=== PATIENT | female | born 2005 | race Caucasian/White ===

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

== ENCOUNTER 2025-02-11 15:06 | Emergency (ER) | payer OTHER, SELFPAY ==
--- NOTE | ~2025-02-11 | XR_ITS ---
CLINICAL HISTORY: coughing. pneumonia 1 view chest x-ray Comparison: None provided Findings: The lungs are clear. Normal size heart. No acute fracture. IMPRESSION: 1. No acute findings. This document has been electronically signed by: Mamie Stevens MD on 02/11/2025 16:29:47
--- OUTSIDE RECORDS SUMMARY | 2025-02-11 15:06 | XMS_ITS | Encounter Summary ---
Author Organization [facility] Address [address] [id number] Phone Care Team Providers Care Deployment Technician Name Role Phone Francheska Peña MD Primary Care Provider [phone] Reason for Visit * Reason Comments ED Admission Encounter Details Date Type Department Care Team ([facility] st Contact Info) Description 02/11/2025 3:06 PM EDT - Present Emergency [facility] - Patient Ping Social History Tobacco Use Types Packs/Day Years Used Date Smoking Tobacco: Never Smokeless Tobacco: Never Comments:Never smoker Hunger/Food Answer Date Recorded In the last 12 months, did y ou or your family ever eat less than you felt you should because there wasn't enough money for food? No 06/27/2024 Stable Housing Answer Date Recorded Are you worried that in the next 2 months you may not have stable housing? No 06/27/2024 Transportation Concerns Answer Date Rec orded In the last 12 months, have you or your family ever had to go without healthcare because you didn't have a way to get there? No 06/27/2024 Hazards in Home Answer Date Recorded Think about the place you li ve. Do you have problems with any of the following? Pests (mice or roaches), mold, no/not working smoke detectors, water leaks, no window guards. No 2024 Financing Utilities Answer Date Recorde d In the last 12 months, has t he electric, gas, oil, or water company threatened to shut off your services in your home? No 06/27/2024 Safety at Home Answer Date Recorded Are you or your family worried about feeling saf e in your home? No 06/27/2024 Outside Support Answer Date Recorded Do you feel that you need mo re support from other people or programs to help you care for yourself or your family? No 06/27/2024 Understanding Health Concerns Answer Da te Recorded Do you need help understandi ng your or your child's healthcare needs (diagnosis, medications, plan, etc.)? No 06/27/2024 Financing Health Concerns Answer Date R ecorded In the last 12 months, was t here a time when your child needed to see a doctor or get medications or supplies but could not because of cost? No 06/27/2024 Missing School or Work Answer Date Dylon rded Did you or your child miss s chool or work because of a health problem that could have been avoided? No 06/27/2024 Child Education Answer Date Recorded Do you have concerns about y our/your child's learning or behavior in school, preschool, or daycare? No 06/27/2024 Comments No Sex and Gender Information Value Date Recorded Sex Assigned at Female 05/13/2023 10:29 AM EST Legal Sex Female 5:07 PM EDT Gender Identity Female 05/13/2023 10:29 AM EST Sexual Orientation Straight 02/20/2019 8: 02 AM EDT documented as of this encounter Plan of Treatment Not on file documented as of this encounter Visit Diagnoses Not on filedocumented in this encounter Care Teams Deployment Technician Relationship Specialty Start Date End Date Francheska Peña MD [address] [place] [id number] PCP - General Pediatrics 01/12/20 documented as of this encounter
[2025-02-11 15:17] VITALS: BP 113/57; PULSE 91; RESP 18; TEMP 36.7; O2SAT 98; BMI 29.7
--- NOTE | 2025-02-11 15:19 | ED_ITS ---
HPI - General Adult General Chief complaint: General Medical Stated complaint: flu like symptoms Time Seen by Provider: 02/11/25 15:19 Source: patient Mode of arrival: ambulatory Limitations: no limitations History of Present Illness ED Provider: Artemio Bethea HPI narrative: 19 yold female presents to the ED for cough, headache, nuasea/vomiting, sore throat and congestion for the past couple of days. patient states no chest pain or shortness of breath. Related Data Home Medications ?Medication ?Instructions ?Recorded ?Confirmed etonogestrel 68 mg subdermal subdermal 05/27/24 implant (Nexplanon) Previous Rx's ?Medication ?Instructions ?Recorded compr.stocking,knee,long,large #12 ea 09/16/20 amoxicillin 250 mg/5 mL oral 500 mg (10 mL) PO BID 7 d ays #140 05/27/24 suspension mL sulfamethoxazole 800 1 tab PO BID #5 tabs 5 mg-trimethoprim 160 mg tablet (Bactrim DS) benzonatate 200 mg capsule 200 mg PO TID PRN cough 5 d ays #15 02/11/25 caps naproxen 500 mg tablet 500 mg PO BID PRN pain #14 t abs 02/11/25 Allergies Allergy/AdvReac Type Severity Reaction Status Date / Time amoxicillin (AMOXICILLIN) Allergy Unknown RASH Verified 02/11/25 15:18 Review of Systems Review of Systems: sore throat, headache, nausea, vomiting ,coughing Yes all other systems are reviewed and are negative [facility] Social History Social History (Updated 09/15/23 @ 14:42 by Pauly Raymond [facility]) Patient Tobacco Use Status: Never used Tobacco Smoked in Last 30 Days: No Use of substances other than those prescribed or required for medical reasons: No Substance Use Type: Marijuana Advance Directives: No Advance Directives Information Provided: No Patient : No Physical Exam ED Vital Signs: Vital Signs - 24 hr 02/11/25 15:17 02/11/25 15:56 Temperature 98.1 F Pulse Rate 91 84 Respiratory Rate 18 18 Blood Pressure 113/57 L 99/66 Pulse Oximetry 98 96 Oxygen Delivery Method Room Air Room Air BMI result Body Mass Index 29.7 Const General: cooperative, healthy appearing, comfortable, no acute distress, well developed, alert, awake and Physically active Orientation/consciousness: patient oriented x3 HENMT Head: Yes normal to inspection, Yes No palpable skull fracture present, Yes normocephalic and Yes atraumatic Ears: hearing grossly normal bilaterally, external ears normal, TM's normal bilaterally, TM normal on the right, TM normal on the left, EAC's normal, mastoids normal and no periauricular adenopathy General nose exam: Normal external nose present and Normal nares present Throat: Yes posterior oropharynx normal, Yes tonsils normal and Yes uvula midline Eyes General: appearance normal, both eyes and all related structures Neck Neck: Yes normal visual inspection, Yes full ROM, Yes no lymphadenopathy, Yes no meningeal signs, Yes trachea midline, Yes supple, No anterior neck swelling and No tender Chest Chest palpation & inspection: normal inspection of the chest and normal palpation of entire chest wall Resp Effort & Inspection: normal respiratory effort and able to speak in complete sentences Auscultation: clear to auscultation bilaterally Cardio Jugular venous distension: no JVD Heart sounds: S1 normal heart sound present and S2 normal heart sound present GI Inspection: Yes normal to inspection Palpation (GI): Soft to palpation, not firm, nontender, no guarding and not rigid General: Yes no CVA tenderness Back/Spine/Pelvis Back: no CVA tenderness and No back tenderness Skin General skin exam: no rashes or lesions noted, elasticity normal and turgor normal Neuro General: patient oriented x3, gait normal, tone normal, moves all extremities, Normal light touch and pain sensation, no meningeal signs, no focal motor deficits, CN's II-XI intact bilaterally and normal sensation to monofilament Extrem General: Yes normal to inspection, Yes full ROM and Yes capillary refill normal Psych Appearance: grossly normal, well kempt and not disheveled Medications Administered Discontinued Medications Generic Name Dose Route Start Last Admin Trade Name Freq PRN Reason Stop Dose Admin Acetaminophen 650 mg 02/11/25 17:22 02/11/25 17:36 Acetaminophen Child Oral Liq 160 Mg/5 Ml Ud Cup PO 02/11/25 17:23 650 mg ONCE ONE Administration Medical Decision Making Medical Decision Making [facility] Narrative: 19-year-old female presents to ED for URI symptoms. Patient states headache nausea vomiting sore throat coughing and congestion. Patient denies any chest pain or shortness of breath. Patient's COVID influenza came back negative. Strep test negative. Chest x-ray normal. Patient will be treated as URI. Not suspecting hypoxia, respiratory failure, peritonsillar abscess, Jordi's angina, retropharyngeal abscess, IA, PE, myocarditis, pericarditis, or any other life- threatening etiology. Patient explained worrisome signs and informed to return to the ED immediately. Differential Diagnosis Differential Diagnoses: The differential diagnosis associated with the presentation includes (Pneumonia COVID RSV influenza) Lab Data MDM Lab Attestation statement: I reviewed the patient's lab results. Labs: Lab Results 02/11/25 02/11/25 Range/Units 16:01 16:39 COVID-19 (CIELO) Negative (Negative) COVID-19 Clin Com See Note Influenza Type A (HARPAL) Negative (Negative) Influenza Type B (HARPAL) Negative (Negative) Influenza A & B Note See Note S. pyogenes GrpA HARPAL Negative (Negative) Independent Interpretation I performed an independent interpretation of an: Plain X-Ray Radiology Impression Discussion of test interpretation with radiology: I have reviewed the radiologist's reading. Independent Historian Clinical information obtained from an independent historian. History obtained from or confirmed by: Other (Patient) Prescription Management I considered prescription management with: Other (Coughing medication) Discharge Plan Discharge Clinical Impression: URI (upper respiratory infection), Acute viral syndrome Patient Disposition: Home, Self-Care Instructions: Upper Respiratory Infection (ED), Viral Syndrome (ED) Additional Instructions: Chest x-ray came back negative for pneumonia. COVID influenza strep came back negative. Recommend follow up with your primary care provider. Return to the ED immediately for any chest pain, shortness of breath, coughing up blood, weakness, dizziness, drooling, change in voice, neck swelling, or any other concerning symptoms. Prescriptions: New benzonatate 200 mg capsule 200 mg PO TID PRN (Reason: cough) 5 Days Qty: 15 0RF naproxen 500 mg tablet 500 mg PO BID PRN (Reason: pain) Qty: 14 0RF No Action sulfamethoxazole-trimethoprim [Bactrim DS] 800-160 mg tablet 1 tab PO BID Qty: 5 0RF (DME) compr.stocking,knee,long,large Misc See Rx Instructions .ROUTE .MEDSUPPLY Qty: 12 0RF Rx Instructions: As directed Nexplanon 68 mg implant subdermal amoxicillin 250 mg/5 mL suspension for reconstitution 500 mg PO BID 7 Days Qty: 140 0RF Referrals: Leticia Corado MD [Primary Care Provider, Pediatrics] - 2 days Referral Note: Coughing, sore throat, nasal congestion body aches Clinical Impression: Acute viral syndrome; URI (upper respiratory infection) Stand Alone Forms: Work/School Release Interventions: ED Discharge Assessment Last Done: 02/11/25 17:58 Discharge Date/Time: 02/11/25 17:59 Print Language: Polish
[2025-02-11 15:56] VITALS: BP 99/66; PULSE 84; RESP 18; O2SAT 96
--- NOTE | 2025-02-11 16:02 | PC.NURSE ---
Pt c/o cough, 03/16 headache, cough thats productive with clear plegm. A+OX4, anxious but cooperative. Sts CP from coughing. Also c/o sore throat. Pt started feeling sick a couple of days ago, vomitted yesterday but denies n/v today. RR even and unlabored, denies SOB.
[2025-02-11 16:24] LABS: COVID-19 Test Negative (Negative); IDNOW Serial# 08D9AD1C
--- OUTSIDE RECORDS SUMMARY | 2025-02-11 16:28 | XMS_ITS | Encounter Summary ---
Author Organization [facility] Address [address] [place], [place] [id number] Phone Care Team Providers Care Carpenter Prototype Name Role Phone Francheska Peña MD Primary Care Provider [phone] Encounter Details Date Type Department Care Team (Late st Contact Info) Description 02/13/2011 Documentation [facility] Family Medicine [address] [place] [address] Family Medicine, Physician [address] [id number] Social History Tobacco Use Types Packs/Day Years Used Date Smoking Tobacco: Never Assessed Comments Unknown Sex and Gender Information Value Date Recorded Sex Assigned at Female 05/13/2023 10:29 AM EST Legal Sex Female 5:07 PM EDT Gender Identity Female 05/13/2023 10:29 AM EST Sexual Orientation Straight 02/20/2019 8: 02 AM EDT documented as of this encounter Plan of Treatment Not on file documented as of this encounter Visit Diagnoses Not on filedocumented in this encounter Care Teams Carpenter Prototype Relationship Specialty Start Date End Date Francheska Peña MD [address] [place] [id number] PCP - General Pediatrics 01/12/20 documented as of this encounter
--- OUTSIDE RECORDS SUMMARY | 2025-02-11 16:28 | XMS_ITS | Encounter Summary ---
Author Organization [facility] Address [address] [place], [place] [id number] Phone Care Team Providers Care Freelance Court Stenographer Name Role Phone Francheska Peña MD Primary Care Provider [phone] Encounter Details Date Type Department Care Team (Late st Contact Info) Description 12/15/2013 Documentation [facility] [place] [address] [place] [address] Family Medicine, Physician [address] [phone] Social History Tobacco Use Types Packs/Day Years [...] on filedocumented in this encounter Care Teams Freelance Court Stenographer Relationship Specialty Start Date End Date Francheska Peña MD [address] [place] [id number] PCP - General Pediatrics 01/12/20 documented as of this encounter
--- OUTSIDE RECORDS SUMMARY | 2025-02-11 16:28 | XMS_ITS | Clinical Summary ---
Author Organization [facility] Address [address] [place], [place] [id number] Phone Care Team Providers Care Telesales Professional Name Role Phone Francheska Peña MD Primary Care Provider [phone] Allergies No known active allergies Medications Etonogestrel (NEXPLANON SC) Inject under the skin. Active Active Problems Problem Noted Date Diagnosed Date Nexplanon in place 05/12/2021 Overview (05/12/2021): Placed in right arm 05/12/2021 at [facility]. Assessment & Plan (09/22/2024 5:42 PM EDT): Had appt for Nexplanon removal today but had panic attack and declined removal. We discussed options for removal (get done here today, return with a business practices officer for comfort, or have consult with [employer]ING [employer] M[employer]INE SETTER to do procedure under sedation) as well as alternative methods of control. Nexplanon due for 4 year removal date of 05/12/2025, so she does have some time to decide. After discussion: - referral placed to [facility] [employer] [facility] at [facility] to consider Nexplanon removal under sedation - Will consider IUD placement at same time vs other methods of contraception Influenza vaccination declined by caregiver 04/07 Overview (03/09/2022): Declined 04/2019, 02/2020; declined 03/2020, 2020, 2021 Anxiety 02/17/2019 Overview (02/19/2020): Has high anxiety , had two therapists, one in home; no longer participating, feels she is doing ok. Assessment & Plan (09/22/2024 5:45 PM EDT): Attempt at Nexplanon removal today unsuccessful due to pt with severe anxiety/panic attack and declined removal. - Nexplanon discussed separately - Has no therapist, seen in ER by [facility] for panic/anxiety 08/2024 - Gave handout for BH options in the community - she is interested in walk-in CB and will try this option. Offered support from [facility] at [facility] as well if desired. Assessment & Plan (05/12/2021 6:00 PM EST): Very anxious today with Nexplanon insertion. Nori Castellanos, [facility], helped with calming techniques. Assessment & Plan (02/17/2019 10:30 AM EDT): I suggest you read Anxious Kids Anxious Parents by Saray Hannah and Erasto Tinajero and Arturo Plays with her Anxiety for Criss I can see her for help swallowing pills if she would like ADHD (attention deficit hype ractivity disorder), combined type 02/02/2017 Overview (02/17/2019): Really is anxiety, mom says, that presents as problems with focus Assessment & Plan (02/17/2019 10:30 AM EDT): Continue therapy. Avoid artificial food colorings. I suggest a sport, time out with nature. Relaxation exercises. Assessment & Plan (01/31/2018 10:29 AM EDT): Mother reports that this is well controlled with school interventions. No medications or therapy. Assessment & Plan (02/02/2017 12:03 PM EDT): Will try the year without meds. Mom will call if school is having any concerns. Reinforced diet and sleep . Pulmonary valve stenosis 02/02/2017 Overview (02/19/2020): Chart reviewed. Per cardiology, in 2013, was very mild and did not require follow up. Assessment & Plan (02/17/2019 10:35 AM EDT): Resolved per mom, need to get the note, none from gis consultant Assessment & Plan (01/31/2018 11:07 AM EDT): No update on this. No recent visit to cardiology for evaluation. Assessment & Plan (02/02/2017 12:04 PM EDT): No murmur actually heard to day but needs to go back for her 3 yr cardiology follow up(needs to make appt) Referral done. Resolved Problems Problem Noted Date Diagnosed Date Resolved Date Contusion of right middle fi nger without damage to nail 06/14/2017 01/31/2018 Behavior problem in child 02/02/2017 Assessment & Plan (02/02/2017 12:04 PM EDT): Doing better. Will see how things go w/o meds. Encounters Date Type Department Care Team Description 02/11/2025 3:06 PM EDT - Present Emergency [facility] - Patient Ping from Last 3 Months Immunizations Immunization Administration Dates Next Due DTP / HiB 12/13/2006 DTaP / Hep B / IPV 02/22/2006,2005, 006 DTaP 5 10/23/2009 HPV Vaccine 9 Valent 01/31/2018,02/02/2017 Hep A, ped/adol 01/31/2018,01/28/2015,12/13/2006 Hep B, ped/adol 2005 Hib (PRP-T) 02/22/2006,2005,2005 IPV 10/23/2009 Influenza, injectable, trivalent 03/15/2007,06/08 MMR 10/23/2009,09/23/2006 MMRV 09/23/2006 Meningococcal B Trumenba 05/12/2023 Meningococcal Conj (Menactra) MCV4P 02/02/2017 Meningococcal Conj (Menquadfi) MCV4TT 03/05/2022 Pneumococcal Conjugate 09/23/2006,2005,2005,10/21 Tdap 02/02/2017 Varicella 10/23/2009,09/23/2006 Family History Medical History Relation Name Comments ADD / ADHD Brother Seth Hagan Asthma Brother Seth Hagan Obesity Brother Seth Hagan Alcoholism Father Seth Hagan Asthma Father Seth Hagan Obesity Father Seth Hagan Hypertension Father's Brother Obesity Father's Brother Developmental delay Father's Sister Hypertension Father's Sister Hypertension Maternal Grandfather Substance abuse Maternal Grandfather Cancer (Childhood Onset) Maternal Grandmother Hypertension Maternal Grandmother Seizures Maternal Grandmother Substance abuse Maternal Grandmother Thyroid disease Maternal Grandmother ADD / ADHD Mother ShannonBrouillette Allergic rhinitis Mother ShannonBrouillette Anxiety disorder Mother ShannonBrouillette Depression Mother ShannonBrouillette Strabismus Mother ShannonBrouillette Hypertension Mother's Brother Hypertension Mother's Sister Heart disease (Premature) Paternal Grandfather Hyperlipidemia Paternal Grandfather Hypertension Paternal Grandfather Hypertension Paternal Grandmother Relation Name Status Comments Brother eSth Hagan Alive Brother: febrile seizures Cousin Cousin: Autism Father Seth Hagan Alive Father: Asthma Father's Brother Father's Sister Maternal Grandfather Maternal Grandmother Mother ShannonBrouillette Alive Mother: S trabismus/amblyopia, Alive and well Mother's Brother Mother's Sister Other Family history of ADD/ADHD, Family history of Seizure disorder, Family history of Diabetes mellitus Paternal Grandfather Paternal Grandmother Social History Tobacco Use Types Packs/Day Years [...] Orientation Straight 02/20/2019 8: 02 AM EDT Last Filed Vital Signs Vital Sign Reading Time Taken Comments Blood Pressure 117/84 09/22/2024 4:26 PM EDT Pulse 86 09/22/2024 4:26 PM EDT Temperature 36.6 C (97.9 F) 09/22/2024 4:26 PM EDT Respiratory Rate - - Oxygen Saturation - - Inhaled Oxygen Concentration - - Weight 66.4 kg (146 lb 6.4 oz) 09/22/2024 4:26 P M EDT Height 151.1 cm (4' 11.5 ) 06/27/2024 2:08 PM ES T Body Mass Index 29.07 06/27/2024 2:08 PM EST Plan of Treatment Health Maintenance Due Date Last Done Comments HIV Screening 2005 Syphilis Screening (consider for higher risk patients) 2005 Hepatitis C Screening 08/22/2023 Men B Vaccine (2 of 2 - Trum enba SCDM 2-dose series) 11/11/2023 05/12/2023 Chlamydia and Gonorrhea Screening 09/25/2024 06/27/2024, 09/07/2023, 05/12/2023, Additional history exists Influenza Vaccines (#1) 2025 03/15/2007, 06/30 COVID-19 Vaccine (3 - 2024-2 6 season) 2025 11/12/2020, 10/22/2020 DTaP,Tdap,and Td Vaccines (7 - Td or Tdap) 02/02/2027 02/02/2017, 10/23/2009, 12/13/2006, Additional history exists Hepatitis B Vaccines Completed 02/22/2006, 2005, 2005, Additional history exists Pneumococcal Vaccine Completed 09/23/2006, 02/22/2006, 2005, Additional history exists HIB Vaccines Completed 12/13/2006, 02/05, 2005, Additional history exists IPV Vaccines Completed 10/23/2009, 02/05, 2005, Additional history exists MMR Vaccines Completed 10/23/2009, 09/05, 09/23/2006 Varicella Vaccines Completed 10/23/2009, 0 09/23/2006, 09/23/2006 HPV Vaccines Completed 01/31/2018, 02/02/2017 Hepatitis A Vaccines Completed 01/31/2018, 01/28/2015, 12/13/2006 Meningococcal Vaccine Completed 03/05/2022, 017 Procedures * The patient is currently admitted. The information in this section might not be complete until the patient is discharged.Due to [place] state law, this organization might not be sharing sensitive test results. Procedure Name Priority Date/Time Associated Diagnosis Comments AMB REFERRAL TO GYNECOLOGY Routine 12/05/2024 3:39 PM EDT Nex[address]on in place Encounter for other general counseling or advice on contraception CHLAMYDIA AND GONORRHEA, AMPLIFIED Routine 06/27/2024 2:54 PM EST Encounter for screening examination for chlamydial infection from Last 3 Months or Most Recently Relevant to Health Maintenance Results * Due to [place] state law, this organization might not be sharing sensitive test results. * Ambulatory referral to Gynecology (12/05/2024 3:39 PM EDT) Amrita Ledbetter MD OUTPATIENT REFERRAL ORDERABLES F inal Result [facility] [address] [place] [address] * Chlamydia and Gonorrhoea, Amplified (Urine) (06/27/2024 2:54 PM EST) C trach CIELO Negative Negative [facility] N gonorrhoeae CIELO Negative Negative [facility] Urine (Urine, Random (not clean void)) 06/27/2024 2:54 PM EST 06/27/2024 Comment:Urine, Rando Narrative [facility] - 06/28/2024 4:06 PM EST Performed at: 01 - [facility], [address], [place], [place] [id number] Pathology Assistant: Jimmie Cardona MD, Phone: [phone] us Francheska Peña MD LAB MICROBIOLOGY - [facility] Final Result [facility] [address] [place] [address] from Last 3 Months or Most Recently Relevant to Health Maintenance Insurance [facility] NON PCC [facility] [place] Care Teams Telesales Professional Relationship Specialty Start Date End Date Francheska Peña MD [address] [place] [id number] PCP - General Pediatrics 01/12/20
--- OUTSIDE RECORDS SUMMARY | 2025-02-11 16:28 | XMS_ITS | Encounter Summary ---
Author Organization [facility] Address [address] [place] [address] Phone Care Team Providers Care Poultry Feed Supervisor Name Role Phone Francheska Peña MD Primary Care Provider [phone] Encounter Details Date Type Department Care Team (Late st Contact Info) Description 01/21/2017 Conversion Encounter [facility] [address] [place] [address] Social History Tobacco Use Types Packs/Day Years Used Date Smoking Tobacco: Never Comments:Never smoker Comments Unknown Sex and Gender Information Value [...] on filedocumented in this encounter Care Teams Poultry Feed Supervisor Relationship Specialty Start Date End Date Francheska Peña MD [address] [place] [address] PCP - General Pediatrics 01/12/20 documented as of this encounter
--- OUTSIDE RECORDS SUMMARY | 2025-02-11 16:28 | XMS_ITS | Encounter Summary ---
Author Organization [facility] Address [address] [place], [place] [id number] Phone Care Team Providers Care Manager Zone Name Role Phone Francheska Peña MD Primary Care Provider [phone] Encounter Details Date Type Department Care Team (Late st Contact Info) Description 04/05/[address] [facility] Family Medicine [address] [place] [address] Family Medicine, Physician [address] [place] [phone] Social History Tobacco Use Types Packs/Day Years [...] on filedocumented in this encounter Care Teams Manager Zone Relationship Specialty Start Date End Date Francheska Peña MD [address] [place] [address] PCP - General Pediatrics 01/12/20 documented as of this encounter
--- OUTSIDE RECORDS SUMMARY | 2025-02-11 16:28 | XMS_ITS | Encounter Summary ---
Author Organization [facility] Address [address] [place], [place] [address] Phone Care Team Providers Care Animal Physiology Teacher Name Role Phone Francheska Peña MD Primary Care Provider [phone] Encounter Details Date Type Department Care Team (Late st Contact Info) Description 11/22/2015 Documentation [facility] [place] [address] [place] [address] Family Medicine, Physician [address] [place] [phone] Social History Tobacco Use Types Packs/Day Years [...] on filedocumented in this encounter Care Teams Animal Physiology Teacher Relationship Specialty Start Date End Date Francheska Peña MD [address] [place] [address] PCP - General Pediatrics 01/12/20 documented as of this encounter
[2025-02-11 16:29] LABS: IDNOW Serial# 55D5AD1C; Influenza B2 Negative (Negative)
[2025-02-11 16:53] LABS: IDNOW Serial# 58CA691E; Strep A Nucleic Acid Negative (Negative)
[2025-02-11] MEDS: Acetaminophen Child Oral Liq 160 MG/5 ML UD Cup 650 MG PO (17:36)
[2025-02-11 17:57] VITALS: BP 106/81; PULSE 87; RESP 16; O2SAT 97
[2025-02-11 17:58] VITALS: BP 106/81; PULSE 87; RESP 16; TEMP -17.7; TEMP 0; O2SAT 97
== END 2025-02-11 17:59 | disposition home or self-care (01) ==
PROVIDERS: Physician Assistant; Emergency Provider Student in an Organized Health Care Education/Training Program; PCP Specialist
DX: J06.9 Acute upper respiratory infection, unspecified (principal); B34.9 Viral infection, unspecified; R05.9 Cough, unspecified; R51.9 Headache, unspecified; R11.2 Nausea with vomiting, unspecified; Z11.52 Encounter for screening for COVID-19
CPT/HCPCS: 71045; 87502; 87635; 87651; 99283; 99284

== ENCOUNTER → 2025-02-11 15:19 | Outpatient (BNV) | payer OTHER, SELFPAY | PROVIDERS: Emergency Provider Student in an Organized Health Care Education/Training Program; PCP Specialist; Visit Provider Radiology Diagnostic Radiology | DX: R05.9 Cough, unspecified (principal) | CPT/HCPCS: 71045 ==

== ENCOUNTER 2025-02-22 15:57 | Emergency (ER) | payer OTHER, SELFPAY ==
--- OUTSIDE RECORDS SUMMARY | 2025-02-22 15:57 | XMS_ITS | Encounter Summary ---
Author Organization [facility] Address [address] [place], [place] [phone] Phone Care Team Providers Care High Frequency Mill Operator Name Role Phone Francheska Peña MD Primary Care Provider Reason for Visit * Reason Comments ED Admission Encounter Details Date Type Department Care Team ([facility] Contact Info) Description 02/22/2025 3:57 PM EDT - 02/22/2025 7:20 PM EDT Emergency [facility] - Patient Ping Social History Tobacco [...] AM EDT documented as of this encounter Medications at Time of Discharge Etonogestrel (NEXPLANON SC) Inject under the skin. documented as of this encounter Plan of Treatment Not on file documented as of this encounter Visit Diagnoses Not on filedocumented in this encounter Care Teams High Frequency Mill Operator Relationship Specialty Start Date End Date Francheska Peña MD [address] [place] [address] PCP - General Pediatrics 01/12/20 documented as of this encounter
[2025-02-22 16:14] VITALS: BP 105/68; PULSE 91; RESP 18; TEMP 36.7; O2SAT 98; BMI 30.2
--- NOTE | 2025-02-22 16:22 | ED_ITS ---
HPI - General Adult General Chief complaint: General Medical Stated complaint: n+v,cramping ? Related Data Home Medications ?Medication ?Instructions ?Recorded ?Confirmed etonogestrel 68 mg subdermal subdermal 05/27/24 implant (Nexplanon) Previous Rx's ?Medication ?Instructions ?Recorded compr.stocking,knee,long,large #12 ea 09/16/20 amoxicillin 250 mg/5 mL oral 500 mg (10 mL) PO BID 7 d ays #140 05/27/24 suspension mL sulfamethoxazole 800 1 tab PO BID #5 tabs 5 mg-trimethoprim 160 mg tablet (Bactrim DS) benzonatate 200 mg capsule 200 mg PO TID PRN cough 5 d ays #15 02/11/25 caps naproxen 500 mg tablet 500 mg PO BID PRN pain #14 t abs 02/11/25 Allergies Allergy/AdvReac Type Severity Reaction Status Date / Time amoxicillin (AMOXICILLIN) Allergy Unknown RASH Verified 02/22/25 16:16 [facility] Social History Social History (Updated 09/15/23 @ 14:42 by Pauly Raymond [facility]) Patient Tobacco Use Status: Never used Tobacco Substance Use Type: Marijuana Advance Directives: No Advance Directives Information Provided: Yes Physical Exam ED Vital Signs: Vital Signs - 24 hr 02/22/25 16:14 Temperature 98.0 F Pulse Rate 91 Respiratory Rate 18 Blood Pressure 105/68 Pulse Oximetry 98 Oxygen Delivery Method Room Air BMI result Body Mass Index 30.2 Course Course Course Narrative: This is an RME: Additional HPI, ROS, PE not included below will be deferred to primary provider. RME assessment and note performed by: Bryanna Spencer PA-C This is a 19-year-old female who presents emergency department with concerns of nausea, vomiting, urinary frequency. States that her last menstrual period was 28 approximately. She states that she has never been before however she is sexually active, is not on control. She also reports that she has had a cough for the last month. No smoking history. She states that she had an episode of lower abdominal cramping however states that this has since resolved. When asked if she had any abnormal/new vaginal bleeding or discharge, she stated that she ?does not know? Plan: Labs, UA, further ER evaluation needed. Patient left without completing treatment. Medical Decision Making Lab Data 02/22/25 17:40 09/18/25 17:40 Labs: Lab Results 02/22/25 02/22/25 Range/Units 17:40 17:42 WBC 13.4 H (4.8-10.8) X10*3/uL RBC 4.59 (4.20-5.50) X10*6/uL Hgb 13.8 (12.0-16.0) g/dl Hct 40.1 (37.0-47.0) % MCV 87.4 (80.0-98.0) fL MCH 30.1 (27.0-33.0) pg MCHC 34.4 (31.0-35.0) g/dl RDW 12.7 (11.0-16.0) % Plt Count 313 (160-400) X10*3/uL MPV 9.6 (9.4-12.3) fL Immature Gran % (Auto) 0.4 (0.0-0.4) % Neut % (Auto) 70.3 (45-73) % Lymph % (Auto) 16.3 L (20-40) % Stephenson % (Auto) 9.7 (2-11) % Eos % (Auto) 2.8 (0-4) % Baso % (Auto) 0.5 (0-2) % Lymph # (Auto) 2.2 (1.2-4.9) X10*3/uL Stephenson # (Auto) 1.3 H (0.1-1.2) X10*3/uL Eos # (Auto) 0.4 (0.0-0.4) X10*3/uL Baso # (Auto) 0.1 (0.0-0.2) X10*3/uL Abs Immat Gran (auto) 0.05 H (0.00-0.03) X10*3/uL Absolute Neuts (auto) 9.4 H (2.0-8.3) x10*3/uL Absolute Nucleated RBC 0.000 (0.0-0.012) X10*3/uL Nucleated RBC % (auto) 0.0 (0.0-0.2) /100WBC Sodium 143 (135-145) mmol/L Potassium 4.1 (3.3-5.1) mmol/L Chloride 108 (96-108) mmol/L Carbon Dioxide 27 (22-29) mmol/L Anion Gap 12 (12-20) BUN 11 (9-16) mg/dL Creatinine 0.65 (0.5-1.4) mg/dL Estim Creat Clear Calc 116.5 Estimated GFR > 60 Random Glucose 107 (60-115) mg/dL Calcium 9.1 (8.4-10.2) mg/dL Total Bilirubin 0.4 (0.0-1.0) mg/dL Direct Bilirubin 0.2 (0.0-0.5) mg/dL AST 25 (5-31) U/L ALT 22 (0-31) U/L Alkaline Phosphatase 64 (39-117) U/L Total Protein 7.8 (6.5-8.0) g/dL Albumin 4.6 (3.5-5.0) g/dL Beta HCG, Quant < 2 mIU/mL Urine Color Yellow Urine Appearance Clear Urine pH 7.0 (5.0-9.0) Ur Specific [place] >= 1.030 H (1.005-1.025) Urine Protein Trace (Neg-Trace) mg/dL Urine Glucose (UA) Negative (Negative) mg/dL Urine Ketones Trace (Negative) mg/dL Urine Blood Negative (Negative) Urine Nitrite Negative (Negative) Ur Leukocyte Esterase Small (1+) H (Negative) Urine RBC 0-2 (0-2) /HPF Urine WBC 0-5 (0-5) /HPF Ur Squamous Epith Cells 6-10 (0-2) /HPF Urine Bacteria 3+ (None Seen) Hyaline Casts 0-2 (0-2) /LPF Discharge Plan Discharge Clinical Impression: Diagnosis unknown Patient Disposition: Left W/O Completing Treatment Prescriptions: No Action sulfamethoxazole-trimethoprim [Bactrim DS] 800-160 mg tablet 1 tab PO BID Qty: 5 0RF benzonatate 200 mg capsule 200 mg PO TID PRN (Reason: cough) 5 Days Qty: 15 0RF naproxen 500 mg tablet 500 mg PO BID PRN (Reason: pain) Qty: 14 0RF (DME) compr.stocking,knee,long,large Misc See Rx Instructions .ROUTE .MEDSUPPLY Qty: 12 0RF Rx Instructions: As directed Nexplanon 68 mg implant subdermal amoxicillin 250 mg/5 mL suspension for reconstitution 500 mg PO BID 7 Days Qty: 140 0RF Discharge Date/Time: 02/22/25 19:20
[2025-02-22 17:46] LABS: MANUAL DIFF FLAG NO
[2025-02-22 17:48] LABS: Appearance Urine Clear; Glucose Urine UA Negative (Negative); PH 7.0 (5.0-9.0); Specific Gravity - Urine >= 1.030 (1.005-1.025); UMIC TRIGGER UACC YES
[2025-02-22 17:55] LABS: Hematocrit 40.1 % (37.0-47.0); Hemoglobin 13.8 g/dl (12.0-16.0); Imm Gran Abs Auto 0.05 X10*3/uL (0.00-0.03); Imm Gran Pct Auto 0.4 % (0.0-0.4); Lymphocytes Absolute Auto 2.2 X10*3/uL (1.2-4.9); Mean Corpuscular HGB Conc 34.4 g/dl (31.0-35.0); Mean Corpuscular Hemoglobin 30.1 pg (27.0-33.0); Mean Corpuscular Volume 87.4 fL (80.0-98.0); NRBC Abs Auto 0.000 X10*3/uL (0.0-0.012); NRBC Pct Auto 0.0 /100WBC (0.0-0.2); Platelet Count 313 X10*3/uL (160-400); Red Blood Count 4.59 X10*6/uL (4.20-5.50); White Blood Count 13.4 X10*3/uL (4.8-10.8)
[2025-02-22 18:06] LABS: Alanine Aminotransferase 22 U/L (0-31); Albumin Level 4.6 g/dL (3.5-5.0); Alkaline Phosphatase 64 U/L (39-117); Anion Gap 12 (12-20); Aspartate Amino Transferase 25 U/L (5-31); Blood Urea Nitrogen 11 mg/dL (9-16); Calcium 9.1 mg/dL (8.4-10.2); Carbon Dioxide 27 mmol/L (22-29); Chloride 108 mmol/L (96-108); Creatinine Clr Calc Pharmacy 116.5; Estimated Glomerular Filt Rate > 60; Potassium 4.1 mmol/L (3.3-5.1); Sodium 143 mmol/L (135-145); Total Protein 7.8 g/dL (6.5-8.0)
[2025-02-22 18:14] LABS: UACC Culture Trigger YES
--- NOTE | 2025-02-22 19:14 | PC.NURSE ---
Patient came up with friend to triage, requesting results. Assessed by Bryanna STILES and let her know her results were negative and encouraged her that she should still be evaluated for other problems. Pt educated by Bryanna on when she should check if she were . Pt did not want to stay and be further evaluated.
--- OUTSIDE RECORDS SUMMARY | 2025-02-22 19:22 | XMS_ITS | Encounter Summary ---
Author Organization [facility] Address [address] [place], [place] [phone] Phone Care Team Providers Care Movie Operator Name Role Phone Francheska Peña MD Primary Care Provider [phone] Encounter Details Date Type Department Care Team (Late st Contact Info) Description 04/05/2012 Documentation [facility] [place] Family Medicine [address] [place] [address] Family Medicine, Physician [address] [place], [place] [phone] Social History Tobacco Use Types Packs/Day Years [...] on filedocumented in this encounter Care Teams Movie Operator Relationship Specialty Start Date End Date Francheska Peña MD [address] [place] [address] PCP - General Pediatrics 01/12/20 documented as of this encounter
--- OUTSIDE RECORDS SUMMARY | 2025-02-22 19:22 | XMS_ITS | Encounter Summary ---
Author Organization [facility] Address [address] [place], [place] [phone] Phone Care Team Providers Care Sorting Machine Attendant Name Role Phone Francheska Peña MD Primary Care Provider [phone] Encounter Details Date Type Department Care Team (Late st Contact Info) Description 02/13/2011 Documentation [facility] [place] [address] [place] [address] Family Medicine, Physician [address], [place] [phone] Social History Tobacco Use Types Packs/Day Years [...] on filedocumented in this encounter Care Teams Sorting Machine Attendant Relationship Specialty Start Date End Date Francheska Peña MD [address] [place] [address] PCP - General Pediatrics 01/12/20 documented as of this encounter
--- OUTSIDE RECORDS SUMMARY | 2025-02-22 19:23 | XMS_ITS | Encounter Summary ---
Author Organization [facility] Address [address] [place], [place] [address] Phone Care Team Providers Care Urgent Care Physician Assistant Name Role Phone Francheska Peña MD Primary Care Provider [phone] Encounter Details Date Type Department Care Team (Late st Contact Info) Description 12/15/[address] [facility] [place] [address] [place] [address] Family Medicine, Physician [address] [place], [place] [phone] Social History Tobacco Use Types Packs/Day Years [...] on filedocumented in this encounter Care Teams Urgent Care Physician Assistant Relationship Specialty Start Date End Date Francheska Peña MD [address] [place] [address] PCP - General Pediatrics 01/12/20 documented as of this encounter
--- OUTSIDE RECORDS SUMMARY | 2025-02-22 19:23 | XMS_ITS | Encounter Summary ---
Author Organization [facility] Address [address] [place] [address] Phone Care Team Providers Care Health Safety Specialist Name Role Phone Francheska Peña MD Primary Care Provider [phone] Encounter Details Date Type Department Care Team (Late st Contact Info) Description 01/21/2017 Conversion Encounter [facility] [address] [place] [address] Social History Tobacco Use Types Packs/Day Years [...] on filedocumented in this encounter Care Teams Health Safety Specialist Relationship Specialty Start Date End Date Francheska Peña MD [address] [place] [address] PCP - General Pediatrics 01/12/20 documented as of this encounter
--- OUTSIDE RECORDS SUMMARY | 2025-02-22 19:23 | XMS_ITS | Encounter Summary ---
Author Organization [facility] Address [address] [place], [place] [address] Phone Care Team Providers Care Computer Education Professor Name Role Phone Francheska Peña MD Primary Care Provider [phone] Encounter Details Date Type Department Care Team (Late st Contact Info) Description 11/22/2015 Documentation [facility] Family Medicine [address] [place] [address] Family Medicine, Physician [address], [place] [phone] Social History Tobacco Use Types Packs/Day Years [...] on filedocumented in this encounter Care Teams Computer Education Professor Relationship Specialty Start Date End Date Francheska Peña MD [address] [place] [address] PCP - General Pediatrics 01/12/20 documented as of this encounter
--- OUTSIDE RECORDS SUMMARY | 2025-02-22 19:23 | XMS_ITS | Clinical Summary ---
Author Organization [facility] Address [address] [place], [place] [id number] Phone Care Team Providers [employer] Specialist Name Role Phone Francheska Peña MD Primary Care Provider Allergies No known active allergies Medications Etonogestrel (NEXPLANON SC) Inject under the skin. Active Active Problems Problem Noted Date Diagnosed Date Nexplanon in place 05/12/2021 Overview (05/12/2021): Placed in right arm 05/12/2021 at [facility]. Assessment & Plan (09/22/2024 5:42 PM EDT): Had appt for Nexplanon removal today but had panic attack and declined removal. We discussed options for removal (get done here today, return with a top cleaner for comfort, or have consult with [employer] to do procedure under sedation) as well as alternative methods of control. Nexplanon due for 4 year removal date of 05/12/2025, so she does have some time to decide. After discussion: - referral placed to [facility] at [facility] to consider Nexplanon removal under sedation [...] Has no therapist, seen in ER by [facility] for panic/anxiety 08/2024 - Gave handout for BH options in the community - she is interested in walk-in CB and will try this option. Offered support from [facility] at [facility] as well if desired. Assessment & Plan (05/12/2021 6:00 PM EST): Very anxious today with Nexplanon insertion. Nori Castellanos, [facility], helped with calming techniques. Assessment & Plan [...] need to get the note, none from coping machine operator Assessment & Plan (01/31/2018 11:07 AM EDT): [...] Encounters Date Type Department Care Team Description 02/22/2025 3:57 PM EDT - 02/22/2025 7:20 PM EDT Emergency [facility] - Patient Ping 02/12/2025 Telephone [facility] - [address] [address] Diane Ruiz LPN Discharge Follow-Up - ED 02/11/2025 3:06 PM EDT - 02/11/2025 5:59 PM EDT Emergency [facility] - Patient Ping from Last 3 Months [...] Paternal Grandmother Relation Name Status Comments Brother Seth Hagan Alive Brother: febrile seizures Cousin Cousin: [...] Meningococcal Vaccine Completed 03/05/2022, 017 Procedures * Due to [place] state law, this organization might not be [...] to Health Maintenance Results * Due to [place] state law, this organization might not be sharing sensitive test results. * Ambulatory referral to Gynecology (12/05/2024 3:39 PM EDT) Amrita Ledbetter MD OUTPATIENT REFERRAL ORDERABLES F inal Result [facility] [address] [address] * Chlamydia and Gonorrhoea, Amplified (Urine) (06/27/2024 2:54 PM EST) C trach CIELO Negative Negative [facility] N gonorrhoeae CIELO Negative Negative [facility] Urine (Urine, Random (not clean void)) 06/27/2024 2:54 PM EST 06/27/2024 Comment:Urine, Rando Narrative [facility] - 06/28/2024 4:06 PM EST Performed at: 01 - [facility] [place] [address], [address], [place], [place] [id number] [employer] Grader: Jimmie Cardona MD, Phone: [phone] Francheska Peña MD LAB MICROBIOLOGY - GENERAL BRAXTON ALEJANDRO Final Result [facility] [address] [place] [address] from Last 3 Months or Most Recently Relevant to Health Maintenance Insurance [facility] NON PCC [facility] NON PCC [facility] NON PCC Care Teams [employer] Specialist Relationship Specialty Start Date End Date Frnacheska Peña MD [address] [place] [address] PCP - General Pediatrics 01/12/20
== END 2025-02-22 19:20 | disposition left against medical advice (07) ==
LOC: HO.ED 19:20
PROVIDERS: Physician Assistant Medical; Emergency Provider Emergency Medicine
DX: R11.2 Nausea with vomiting, unspecified (principal); Z53.21 Procedure and treatment not carried out due to patient leaving prior to being seen by health care provider
CPT/HCPCS: 36415; 80048; 80076; 81001; 84702; 85025; 87086; 99282; 99283